=== PATIENT | female | born 1980 | race Hispanic/Latino ===

== ENCOUNTER 2016-12-12 06:58 | Inpatient (IN) | payer MEDICAID ==
[~2016-12-12] VITALS: Ht 149.9 cm; Wt 75.7 kg
[~2016-12-12 06:58] MED LIST: AMOX-366 PO; OXYC-474 PO; POLY17PO6 PO
[2016-12-12] MEDS ORDERED: Lactated Ringer's 1,000 ML IV PRN (09:03)
[2016-12-12] MEDS ORDERED: Oxytocin 30 Units/500 mL LR 30 UNITS in IV Premix 1 EACH IV PRN (09:05)
[2016-12-12] MEDS ORDERED: Sodium Chloride LOK Flush 10 mL Syringe IVFLUSH PRN (09:05)
[2016-12-12] MEDS ORDERED: Methylergonovine 0.2 mg/mL Inj IM PRN (09:05)
[2016-12-12] MEDS ORDERED: Oxytocin 10 Unit/mL Inj IM PRN (09:05)
[2016-12-12] MEDS ORDERED: Hemorrhage Kit, Post Partum XX ONE (09:05)
[2016-12-12] MEDS ORDERED: Ondansetron 2 mg/mL 2 mL Inj IVPUSH PRN (09:05)
[2016-12-12] MEDS ORDERED: Carboprost 250 mCg/mL Inj IM PRN (09:05)
[2016-12-12] MEDS ORDERED: Penicillin G K Inj 5,000,000 UNITS in Dextrose 5% Minibag Plus 100 ML IV ONE (09:05)
[2016-12-12 09:39] LABS: Mean Corpuscular Hemoglobin 29.9 pg (27.0-35.0); Mean Corpuscular Volume 86.7 fL (81-100)
[2016-12-12] MEDS: Penicillin G K Inj 3,000,000 UNITS in IV Premix 1 EACH IV SCH ×3 (14:40→22:04)
--- NOTE | 2016-12-12 17:13 | PCM.HPOB ---
Subjective Date of Service: Dec 12, 2016 Referring Provider: Admitting Physician: Steph Vanegas MD Primary Care Physician: Francine Pacheco MD Attending Physician: Steph Vanegas MD Chief Complaint Here for scheduled induction. History of Present History of Present Illness [id number]=12/25/2016 by LMP conf by [id number] U/S. Induction of labor for IUGR. 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 2- Abnormal QUAD screen w/(+) Down syndrome-> negative cell free DNA testing. Incomplete anatomy scan. 3- IUGR: 1%tile on 08/12/16--> Last U/S @ [facility] on 08/30/16 showed EFW 456gm, 4%tile , humerus 3%tile, Femur 2%tile,-->persistent 4%tile growth on 11/18/2016 scan.( deliver at 38-39wks [address] Dr. Farrell) 4- Anemia (on iron supplements). 5- Abnormal 1hr GCT--> HbA1c was 6.3 @ intake.rpt 1 hr Wnl at 26 weeks (121) 6- Desires permanent sterilization (consents signed on 10/25/2016) Past Medical History Obstetrical History: 1st Outcome Live Delivery Date: 01/31/2006 Length of Pregnacy: 40 Mode of Delivery: Vaginal Anesthesia: epidural Labor hrs: 3-4 Location: [place] Birthweight: 4lbs Gender: female Complications: chromosome problems baby 03/10/2006 2nd Outcome live Delivery Date: 03/2012 Length of Pregnacy: 38 Mode of Delivery: Vaginal Anesthesia: epidural Labor hrs: 2 Location: [facility] Birthweight: 6lbs 10 oz Gender: female Complications: none Child's Name: Talya HERNANDEZ Name: Nish 3rd Outcome Live Delivery Date: 11/27/2013 Mode of Delivery: Vaginal Birthweight: 6lbs Length of : 38wks Complications: NO Child's Name: Levi Rueda Father: Nish Urias Gynecologic History: LMP 03/16/16 No h/o of abn pap No h/o of STI Medical History: * Rosacea 09/2016: Dermatology consult -->rx Finacea topical gel * Allergic rhinitis, seasonal Surgical History: None. Hx Tobacco Use: No Hx Alcohol Use: No Hx Substance Use: No Review of Systems ROS 11 points ROS is negative. Medications Home medications Iron daily vitamins Allergy Coded Allergies: No Known Allergies (Verified Allergy, Unknown, 07/04/15) Exam Vital Signs Vital signs reviewed WNL. heart tones: category 1 . Constitutional: Well-developed HEENT: Atraumatic, PERRLA Lungs: Clear to Auscultation Heart: Regular Rate/Rhythm, Normal S1, Normal S2 Abdomen: Gravid Extremities: Pulses Palpable x4, No Edema Neurological/Psychiatric: Alert, Oriented X3 Neuro: Grossly Neurologically Intact, Reflexes 2+ Additional Information at admission cervix closed/50%/-3/soft/posterior, bass score 3. Labs/Diagnostics Lab/Diagnostic Information CBC Test 12/12/16 09:30 White Blood Count 10.5th/mm3 (3.8-10.1) Red Blood Count 4.28mil/mm3 (3.90-5.20) Hemoglobin 12.8g/dL (12.0-15.6) Hematocrit 37.1% (35.0-46.0) Mean Corpuscular Volume 86.7fL (81-100) Mean Corpuscular Hemoglobin 29.9pg (27.0-35.0) Mean Corpuscular Hemoglobin Concent 34.5% (32.0-37.0) Red Cell Distribution Width 13.4% (12.3-15.4) Platelet Count 243bil/L (150-400) Maternal Blood Type: O (positive ) Antibody Screen: Negative Group B Strep Results: Positive Rubella: Immune Additional Information RPR non-reactive Hep B sAg non-reactive HIB non-reactive Pap WNL , HPV negative 06/17/16 1 hr GTT at 12 weeks (123), at 16 weeks (135) at 26 weeks (121) OB Intrapartum Assessment/Plan Assessment [id number]=12/25/2016 by LMP conf by [id number] U/S. Induction of labor for IUGR. 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 2- Abnormal QUAD screen w/(+) Down syndrome-> negative cell free DNA testing. Incomplete anatomy scan. 3- IUGR: 1%tile on 08/12/16--> Last U/S @ [facility] on 08/30/16 showed EFW 456gm, 4%tile , humerus 3%tile, Femur 2%tile,-->persistent 4%tile growth on 11/18/2016 scan.( deliver at 38-[address]. Farrell) 4- Anemia (on iron supplements). 5- Abnormal 1hr GCT--> HbA1c was 6.3 @ intake.rpt 1 hr Wnl at 26 weeks (121) 6- Desires permanent sterilization (consents signed on 10/25/2016) Intrapartum plan Induction of labor process/R/B/A were reviewed with pt in details at the office , all questions answered, and informed consent was signed. Cervidil placed at 10 am. Steph Vanegas MD Dec 12, 2016 17:13
[2016-12-12] MEDS: Lactated Ringer's 1,000 ML IV SCH ×2 (19:13→20:52)
[2016-12-12] MEDS: fentaNYL-PF 50 mCg/mL 2 mL Inj IVPUSH PRN ×2 (19:16→20:39)
[2016-12-13] MEDS ORDERED: fentaNYL 2 mCg/mL-Bupivicaine 0.125% 100 mL Premix EPIDURAL ONE (02:21)
[2016-12-13] MEDS: Penicillin G K Inj 3,000,000 UNITS in IV Premix 1 EACH IV SCH ×6 (02:45→21:00)
[2016-12-13] MEDS ORDERED: Lactated Ringer's 500 ML IV ONE (02:56)
--- NOTE | 2016-12-13 02:56 | PCM.HPANE ---
Patient Data Surgeon Admitting Provider:Steph Vanegas MD Attending Provider:Steph Vanegas MD Primary Care Physician:Francine Pacheco MD Other Provider: Reason for Visit Induction INDUCTION Ht/WT & BMI Body Mass Index Allergies Coded Allergies: No Known Allergies (Verified Allergy, Unknown, 07/04/15) Past Anesthesia History Anesthesia History: Denies:: Abnormal Airway, Anesthesia Reactions, Difficult Intubation, Fam Anesthesia Reaction, Fam Malignant Hypertherm, Malignant Hyperthermia Diabetes History Hx Diabetes?: No Medications Active Scripts Polyethylene Glycol 3350 (Miralax)17 Gm Powd.pack17 Gm PO DAILY PRN For Constipation #7 Prov:Lucinda Hartman [facility] 07/06/15 Oxycodone (Roxicodone)5 Mg Tablet5 Mg PO Q6H PRN For Pain #20 TABLET Ref 0 Prov:Lucinda Hartman [facility] 07/06/15 Amoxicillin/Clav K 875-125 mg (Augmentin 875-125 mg)1 Each Tablet1 Tablet PO BID #14 TABLET Ref 0 Prov:Lucinda Hartman [facility] 07/06/15 History History of ENT Problems?: No HEENT History: Denies:: Abnormal Airway Cataracts Difficult Intubation Dysphagia Glaucoma Hearing Problem Sinus Problem TMJ Denture Type: None Teeth Condition: Within Normal Limits Hx of Heart Problems?: No Cardiovascular History: Denies:: AICD Abdominal Aortic Aneurism Atrial Fibrillation Cardiac Surgery Chest Pain Congestive Heart Failure Coronary Artery Disease Edema Heart Murmur Hypertension Irregular Heartbeat Pacemaker Peripheral Vascular Rheumatic Fever Thrombophlebitis Valvular Heart Disease Hx of Respiratory Problem?: No Respiratory History: Denies:: Asthma COPD Chest Surgery Cough Dyspnea Emphysema Hemoptysis Oxygen Administration Pneumonia Pulmonary Embolism Tuberculosis Use of C-PAP Machine Use of Inhalers / NEBS Hx Neurologic Problems?: No Neurological History: Denies:: Alzheimer's Disease CVA Dementia Dizziness Headaches Multiple Sclerosis Parkinson's Disease Peripheral Neuropathy Seizures TIA Hx of GI Problems?: No Gastrointestinal History: Denies:: Cirrhosis Diverticulitis Gall Bladder Disease Gastroesphageal Reflux Gastrointestinal Bleeding Heartburn Hepatitis Hiatal Hernia Liver Disease Rectal Bleeding Hx of Problems?: No Genitourinary History: Denies:: HX of Hemodialysis Kidney Stones Urinary Tract Infection HX of Peritoneal Dialysis: No Female Hx: Positive for:: Currently Denies:: Endometriosis Pelvic Inflammatory Problems with Breasts? Skin History: Denies:: History Skin Disorders? Pressure Ulcers Hx Musculoskeletal Problems?: No Hx of Psycho/Social Problems?: No Hx Surgeries?: No Hx Any Other Health Problems?: No Hx Diabetes: No Hx Alcohol Use: NoHx Substance Use: No Smoking Status: Never Smoker Stop/Bang Risk Assessment Category Category 1A: Patient has history of documented sleep apnea, and HAS NOT received any narcotic, sedative or anesthesia administration during this stay. Category 1B: Patient has history of documented sleep apnea, and HAS received any narcotic , sedative or anesthesia administration during this stay Category 2: Patient has SUSPECTED Obstructive Sleep Apnea, and HAS received any narcotic , sedative or anesthesia administration during this stay. Category 3: Patient has SUSPECTED Obstructive Sleep Apnea and HAS NOT received narcotic, sedative or anesthesia administration during this stay. Category 4: Outpatient in Procedural Areas with known sleep apnea or who screen positive for High Risk via the STOP/BANG questionnaire. Exam Exam General Appearance: Alert, Oriented X3, Cooperative, No Acute Distress HEENT/AIRWAY: MP 2, Neck Movement (FROM), Mouth Opening (3 FBMO) Lungs: Clear to Auscultation, Normal Air Movement Heart: Exam Unremarkable, Regular Rate/Rhythm, No Murmurs/Rubs/Gallops Meds/Labs/Diagnostics Admission Meds Current Medications Dinoprostone 10 mg 10 mg ONCE ONCE VAGINAL Last administered on 12/12/16 10: 03; Start 12/12/16 at 09:05; Stop 12/12/16 at 09:12; Status DC Penicillin G Potassium/ Dextrose/Water (Pfizerpen Inj/ D5W Minibag Plus) 100 ml @ 240 mls/hr ONCE ONCE IV Last administered on 12/12/16 10:03; Start at 09:05; Stop 12/12/16 at 09:29; Status DC Labs Test 12/12/16 09:30 White Blood Count 10.5th/mm3 (3.8-10.1) Red Blood Count 4.28mil/mm3 (3.90-5.20) Hemoglobin 12.8g/dL (12.0-15.6) Hematocrit 37.1% (35.0-46.0) Mean Corpuscular Volume 86.7fL (81-100) Mean Corpuscular Hemoglobin 29.9pg (27.0-35.0) Mean Corpuscular Hemoglobin Concent 34.5% (32.0-37.0) Red Cell Distribution Width 13.4% (12.3-15.4) Platelet Count 243bil/L (150-400) Plan Impression Patient chart reviewed, patient interviewed and anesthestic plan with risks, benefits, and alternatives discussed, and informed consent obtained. NPO per Anesth. Guidelines: Yes ASA Physical Status: ASA1 Normal Healthy Anesthetic Plan: Epidural Bene/Risks/Altern/Consents: Yes HP Complete Prior to Induction: Yes Other khmer speaker packer and carry out present at all times during H&P. Anesthesia risks discussed. Myles Masterson MD Dec 12, 2016 13:59
[2016-12-13] MEDS: Lactated Ringer's 1,000 ML IV SCH ×9 (02:59→23:17)
[2016-12-13] MEDS ORDERED: Atropine 1 mg/10 mL (Code) Syringe IVPUSH PRN (03:00)
[2016-12-13] MEDS ORDERED: EPHEDrine Sulfate 50 mg/mL Inj IVPUSH PRN (03:00)
[2016-12-13] MEDS ORDERED: fentaNYL 2 mCg/mL-Bupiv 0.125% 100 ML EPIDURAL SCH (03:00)
[2016-12-13] MEDS ORDERED: Oxytocin 30 Units/500 mL LR 30 UNITS in IV Premix 1 EACH IV PRN ×2 (07:20→16:00)
[2016-12-13] MEDS ORDERED: Bupivacaine-MPF 0.25% 30 mL Inj ONE (08:09)
[2016-12-13] MEDS ORDERED: Carboprost 250 mCg/mL Inj IM PRN (16:00)
[2016-12-13] MEDS ORDERED: Hemorrhage Kit, Post Partum XX ONE (16:00)
[2016-12-13] MEDS ORDERED: Oxytocin 10 Unit/mL Inj IM PRN (16:00)
[2016-12-13] MEDS ORDERED: LANOlin HPA 7 Gm Ointment TOPICAL PRN (16:00)
[2016-12-13] MEDS ORDERED: Methylergonovine 0.2 mg/mL Inj IM PRN (16:00)
[2016-12-13] MEDS ORDERED: Benzocaine (Dermoplast) 20% 60 Gm Spray TOPICAL PRN (16:00)
[2016-12-13] MEDS ORDERED: Witch Hazel-Glycerin Pads TOPICAL PRN (16:00)
--- NOTE | 2016-12-13 16:46 | OP ---
[address] [address] OPERATIVE REPORT PATIENT: ANAI COLMENARES : 1980 MR#: [id number] ADMIT: 12/12/2016 JOB ID: [id number] DATE OF SURGERY: 12/13/2016 PREOPERATIVE DIAGNOSIS(ES): 1. Intrauterine at 38 weeks and 2 days. 2. Intrauterine growth restriction. POSTOPERATIVE DIAGNOSIS(ES): 1. Intrauterine at 38 weeks and 2 days. 2. Intrauterine growth restriction. PROCEDURE: Normal vaginal delivery with no laceration. SURGEON: Steph Vanegas MD. NON PROFIT DIRECTOR: None. ANESTHESIA: Epidural. ESTIMATED BLOOD LOSS: 300 mL. COMPLICATIONS: None. OUTCOME: Male infant, weight 2548 g. Apgars 9 and 9 at one and five minutes, respectively. Clear amniotic fluid. Nuchal cord x1 and placenta intact with a three-vessel cord. PROCEDURE: This is a 36-year-old, 4, para 3-0-0-2. Was admitted at 38 weeks and 1 day gestation for induction for intrauterine growth restriction. Estimated weight was at 4th percentile. Induction was started with Cervidil for cervical ripening. Rosas's score was 3 at admission. Cervidil was repeated after 12 hours. Then, next morning, the cervix found to be 5 cm dilated. The cervix remained at 5 cm dilated from 6 in the morning until 8 a.m. Oxytocin was started. Patient continued to contract regularly with Pitocin. Cervix found to be 5-6 cm dilated around 1300 hour and artificial rupture of membrane was performed. Clear fluid was noted. Cervix noted to be at 7 cm at 13:30. Head was well applied. Patient continued to contract regularly with Pitocin. Found to be completely dilated at 14:42. She pushed effectively when she started to have pelvic pressure. Delivered at 15:07 via two contractions. Delivered a male in left occiput anterior position with nuchal cord that was loose, delivered through the nuchal cord. Shoulders delivered without difficulty. was placed on the maternal abdomen. Delayed cord clamping was performed after 1 minute. Apgars were 9 and 9 at one and five minutes respectively. Cord segment was collected for gases. Cord blood was collected for typing and placenta was delivered spontaneously intact at 15:11 with a three-vessel cord. Fundal massage was performed. Pitocin was started before delivery of the placenta and was continued for the coming 4-5 hours. The perineum was examined. No laceration was noted. All instrument, needle, and sponge counts were correct x2. The patient tolerated the procedure well and was recovering in the delivery room with infant in stable condition. Steph Nixon MD, was present and scrubbed for the entire procedure. JEZ
[2016-12-13] MEDS: oxyCODONE-Acetamin 5-325 mg Tablet PO PRN (17:03)
[2016-12-13] MEDS: Ascorbic Acid 500 mg Tablet PO SCH (17:30)
--- NOTE | 2016-12-13 22:54 | PCM.ANEP1 ---
Post Anesthesia PACU Phase 1 Assessment Date of Service: Dec 13, 2016 Anesthetic Administered: Epidural Level of Alertness: Awake, talking PALMER's with Equal Strength: Yes Pain: No Nausea or Vomiting: No CV Function & Hydration Stable: Yes Airway Device: Oxygen Delivery: Room Air Lungs: Clear to Auscultation, Normal Air Movement Dermatome Level: Full Sensation PACU Phase 2 Assessment Complications: No Follow up Care: N/A Patient Instructions Provided: N/A Toni Shukla MD Dec 13, 2016 22:54
[2016-12-14] MEDS: Penicillin G K Inj 3,000,000 UNITS in IV Premix 1 EACH IV SCH ×4 (01:00→13:00)
[2016-12-14] MEDS: Lactated Ringer's 1,000 ML IV SCH ×7 (01:03→09:03)
[2016-12-14] MEDS: oxyCODONE-Acetamin 5-325 mg Tablet PO PRN ×3 (03:55→21:12)
[2016-12-14 06:48] LABS: Mean Corpuscular Hemoglobin 29.9 pg (27.0-35.0); Mean Corpuscular Volume 87.9 fL (81-100)
[2016-12-14] MEDS ORDERED: Sodium Citrate-Citric Acid 15 mL Solution PO ONE (10:48)
[2016-12-14] MEDS ORDERED: CeFAZolin Inj 2 GM in IV Premix 1 EACH IV ONE (10:50)
--- NOTE | 2016-12-14 12:25 | PCM.DIOB ---
Obstetrical Disch Instruction Date of Service: Dec 14, 2016 Dates of Hospitalization Date of Hospital Admission Dec 12, 2016 at 07:59 Providers Admitting Physician: Steph Vanegas MD Primary Care Physician: Francine Pacheco MD Attending Physician: Steph Vanegas MD Discharge Diagnosis Discharge Diagnosis Status post Normal vaginal delivery 12/13/16 Status post tubal ligation 12/14/16 anemia, asymptomatic Problems: Diet Discharge Diet: No restrictions Activity Discharge Activity-General: Pelvic Rest for 6 weeks (no sex, douching and tampons ), No lifting >10 pounds for 4-6 weeks Dressing and Incisional Care Dressing Care: Allow Steri Stripes to fall off, Remove outer dressing after 24 hrs Hygiene: May shower (after 24 hours ), Wash incision with soap & water (then dry well and keep open ) Follow Up Plan Follow-up Provider (F9): Steph Vanegas MD Follow-up appointment: Weeks (1 or 2) Call your provider for: Fever or Chills, Shortness of breath, Heavy vaginal bleeding, Heavy bleeding, Epigastric pain, Excessive constipation, Vaginal discomfort, Red painful breasts, Other (headache, change in vision, nausea/ vomiting, breast pain, legs swelling, change in legs color or legs pain ) Steph Vanegas MD Dec 14, 2016 12:25
[2016-12-14] MEDS ORDERED: OXYC1TAB24 PO (12:28)
[2016-12-14] MEDS ORDERED: FERR-74 PO (12:28)
[2016-12-14] MEDS ORDERED: Ascorbic Acid PO (12:28)
[2016-12-14] MEDS ORDERED: DOCU-41 PO (12:28)
[2016-12-14] MEDS ORDERED: IBUP-1827 PO (12:28)
--- NOTE | 2016-12-14 12:31 | PCM.DC.OB ---
Obstetrical Discharge Summary Date of Service Dec 14, 2016 Date of hospital admission Dec 12, 2016 at 07:59 Date of Discharge: Dec 15, 2016 Providers Admitting Physician: Dora Ridley MD Primary Care Physician: Francine Pacheco MD Attending Physician: Dora Ridley MD Hospital Course: Discharge Diagnosis Discharge Diagnosis Status post Normal vaginal delivery 12/13/16, see operative report for details. Status post tubal ligation 12/14/16 , see operative report for details. anemia, asymptomatic LAB: Laboratory Tests 72 Hours Test 12/14/16 06:35 12/15/16 06:44 White Blood Count 11.8th/mm3 (3.8-10.1) 10.6th/mm3 (3.8-10.1) Red Blood Count 3.64mil/mm3 (3.90-5.20) 3.49mil/mm3 (3.90-5.20) Hemoglobin 10.9g/dL (12.0-15.6) 10.4g/dL (12.0-15.6) Hematocrit 32.0% (35.0-46.0) 31.1% (35.0-46.0) Mean Corpuscular Volume 87.9fL (81-100) 89.1fL (81-100) Mean Corpuscular Hemoglobin 29.9pg (27.0-35.0) 29.8pg (27.0-35.0) Mean Corpuscular Hemoglobin Concent 34.1% (32.0-37.0) 33.4% (32.0-37.0) Red Cell Distribution Width 13.2% (12.3-15.4) 13.4% (12.3-15.4) Platelet Count 193bil/L (150-400) 205bil/L (150-400) Disposition: home. Discharge Condition: stable. Diet Discharge Diet: No restrictions Activity Discharge Activity-General: Pelvic Rest for 6 weeks (no sex, douching and tampons ), No lifting >10 pounds for 4-6 weeks Dressing and Incisional Care Dressing Care: Allow Steri Stripes to fall off, Remove outer dressing after 24 hrs Hygiene: May shower (after 24 hours ), Wash incision with soap & water (then dry well and keep open ) Follow Up Plan Follow-up Provider (F9): Dora Ridley MD Follow-up appointment: Weeks (1 or 2) Call your provider for: Fever or Chills, Shortness of breath, Heavy vaginal bleeding, Heavy bleeding, Epigastric pain, Excessive constipation, Vaginal discomfort, Red painful breasts, Other (headache, change in vision, nausea/ vomiting, breast pain, legs swelling, change in legs color or legs pain ) ([Ascorbic Acid]) 500 MG TABLET 500 MG PO BIDWM Prescribed by: DORA RIDLEY MD Docusate Sodium (Colace) 100 Mg Capsule 100 MG PO DAILY Prescribed by: DORA RIDLEY MD Ferrous Sulfate (Feosol) 325 Mg Tablet 325 MG PO DAILY Prescribed by: DORA RIDLEY MD Ibuprofen (Ibuprofen) 600 Mg Tablet 600 MG PO QID PRN PRN For Pain Prescribed by: DORA RIDLEY MD Polyethylene Glycol 3350 (Miralax) 17 Gm Powd.pack 17 GM PO DAILY PRN PRN For Constipation Prescribed by: VIANNEY ADKINS oxyCODONE-Acetaminophen 5-325 mg (oxyCODONE-Acetaminophen 5-325 mg) 1 Each Tablet 1-2 TAB PO Q4H PRN PRN For Pain Prescribed by: DORA RIDLEY MD Discontinued Medications Amoxicillin/Clav K 875-125 mg (Augmentin 875-125 mg) 1 Each Tablet 1 TABLET PO BID Prescribed by: VIANNEY ADKINS Oxycodone (Roxicodone) 5 Mg Tablet 5 MG PO Q6H PRN PRN For Pain Prescribed by: VIANNEY ADKINS Omaima A MD Dec 14, 2016 12:31
[2016-12-14] MEDS ORDERED: Sodium Chloride LOK Flush 10 mL Syringe IVFLUSH PRN ×2 (13:55)
[2016-12-14] MEDS ORDERED: LANOlin HPA 7 Gm Ointment TOPICAL PRN ×2 (13:55)
[2016-12-14] MEDS ORDERED: diphenhydrAMINE 50 mg Capsule PO PRN (13:55)
[2016-12-14] MEDS ORDERED: oxyCODONE-Acetamin 5-325 mg Tablet PO PRN (13:55)
[2016-12-14] MEDS ORDERED: Oxytocin 30 Units/500 mL LR 30 UNITS in IV Premix 1 EACH IV PRN (13:55)
[2016-12-14] MEDS ORDERED: hydrOXYzine Pamoate 25 mg Capsule PO PRN (13:55)
[2016-12-14] MEDS ORDERED: Lactated Ringer's 1,000 ML IV SCH ×2 (13:55)
[2016-12-14] MEDS ORDERED: Carboprost 250 mCg/mL Inj IM PRN ×2 (13:55)
[2016-12-14] MEDS ORDERED: Hemorrhage Kit, Post Partum XX ONE ×2 (13:55)
[2016-12-14] MEDS ORDERED: Methylergonovine 0.2 mg/mL Inj IM PRN ×2 (13:55)
[2016-12-14] MEDS ORDERED: Oxytocin 10 Unit/mL Inj IM PRN ×2 (13:55)
[2016-12-14] MEDS: Ascorbic Acid 500 mg Tablet PO SCH (15:46)
[2016-12-15 07:09] LABS: Mean Corpuscular Hemoglobin 29.8 pg (27.0-35.0); Mean Corpuscular Volume 89.1 fL (81-100)
[2016-12-15] MEDS: Ascorbic Acid 500 mg Tablet PO SCH (07:53)
[2016-12-15 12:44] VITALS: BP 97/54; PULSE 78; RESP 18
--- NOTE | 2016-12-15 15:10 | OP ---
[address] [address] OPERATIVE REPORT PATIENT: ANAI COLMENARES : 1980 MR#: [id number] ADMIT: 12/12/2016 JOB ID: [id number] DATE OF SURGERY: 12/14/2016 PREOPERATIVE DIAGNOSIS(ES): 1. Multiparity. 2. Desires permanent sterilization. POSTOPERATIVE DIAGNOSIS(ES): 1. Multiparity. 2. Desires permanent sterilization. PROCEDURE: tubal ligation via mini-laparotomy with bilateral partial salpingectomy. SURGEON: Steph Vanegas MD. FILM AND VIDEO EDITOR: None. ANESTHESIA: Spinal. ESTIMATED BLOOD LOSS: 10 cc. COMPLICATIONS: None. FINDINGS: Normal tubes bilaterally. Both were traced out to the fimbria. No visible adnexal masses or uterine masses. Limited exposure secondary to the mini-laparotomy. SPECIMEN: Partial segment of the left and right fallopian tubes. BLOOD TRANSFUSION: None. INDICATIONS: This is a 36 years old, 4, para 4-0-0-3, status post normal vaginal delivery on December 13, 2016. The patient desires permanent sterilization. The patient signed the sterilization consent over 30 days ago. The patient was counseled at the office extensively, and counseled again prior to the procedure. The patient understands that tubal ligation is a permanent procedure with a failure rate of 1:200, with an increased risk of ectopic in failed tubal ligation cases. Alternatives to tubal ligation were discussed in detail including LARC and a male sterilization. Reviewed risks, benefits and alternatives of each alternative control method. The patient understands she may still need some hormonal treatment in the future if she develops abnormal uterine bleeding. [employer]ge [employer]per was used for discussion and counseling both at the office and prior to the surgery. All questions were answered. The patient desires to proceed with a tubal ligation as planned today. DESCRIPTION OF PROCEDURE: After informed consent was obtained, the patient was taken to the operation room. She was placed under adequate spinal anesthesia. Then, she was placed in a supine position. Abdomen was prepped and draped in the usual sterile fashion. The patient received 2 g of Ancef prophylactically. A skin incision was made in horizontal fashion in the infra umbilical area. The incision was extended down to the fascia with blunt dissection using Metzenbaum scissors. Then, the fascia was grasped and was elevated. The fascia was entered sharply with Metzenbaum scissors. Then, the peritoneum was identified and grasped with hemostats and was brought to the incision and was incised with Metzenbaum scissors. Confirming intraperitoneal location, no evidence of injury was noted. Then, mini lap was inserted in the left lateral gutter, and the patient was tilted to the right. The fallopian tube was identified and traced out to the fimbria. The middle segment of the tube was elevated and an area clear of vascularity in the mesosalpinx was identified. A window was created with Bovie cautery. Then, the middle segment was double ligated bilaterally with 0 plain gut suture material. Then, the middle segment was excised. Hemostasis was ensured with gentle cautery at the remaining tubal stump. Then, the tube was visualized for any bleeding, and the mesosalpinx was examined for any bleeding. Noted to be hemostatic. Some irrigation was performed with no evidence of any bleeding. The tube was returned back into the abdomen. Then, attention was turned to the right side of the procedure after removing the mini sponge from the left. The patient was tilted back to the left side and mini laps were used to pack the bowel on the right side. The right tube was identified, traced out to the fimbria. The middle segment of the tube was elevated and an area clear of the vascularity was identified. A window was created with the Bovie cautery. A 3-4 cm middle segment was double tied and ligated and excised. Remaining stumps of the tube were examined. Hemostasis was ensured with Bovie cautery, and some irrigation was performed ensuring no active bleeding. The tube was returned back to the abdomen. Removed all sponges and instrument. The fascia was approximated with 0 Vicryl in a running fashion in a UR needle. The subcutaneous layer was approximated with 2-0 chromic in a simple interrupted fashion. The skin was closed with 4-0 Monocryl in a subcuticular fashion, followed by Steri-Strips. Then, adhesive bandage. All instrument, needle and sponge counts were correct x2. The patient tolerated the procedure well and was transferred to the recovery room in stable condition. Steph Nixon MD, was present and scrubbed for the entire procedure. JEZ
--- NOTE | 2016-12-16 10:51 | PATH ---
SURGICAL PATHOLOGY Attending Physician:Steph Vanegas CASE STATUS: Signed Out PATIENT NAME: ANAI COLMENARES PID: [id number] : 1980 DATE COLLECTED:12/12/2016 00:00 SPECIMEN: Placenta CLINICAL HISTORY: INTRAUTERINE GROWTH RESTRICTION 1). PLACENTA FINAL DIAGNOSIS: Placenta, Vaginal Delivery: - Warren placenta weighing 393 grams. - Three-vessel umbilical cord with no evidence of inflammation. - membranes with no evidence of inflammation. - Focal active deciduitis is identified with no evidence of viral cytopathic changes. - Villous morphology appropriate for gestational age with focal infarcts. ICD10: P05.9 GROSS DESCRIPTION: The specimen is received in formalin, labeled with the patient's name, and consists of an intact placenta which includes the placental disc (393 g, 14.3 x 13.5 x 2.8 cm), membranes and umbilical cord (length-15.5 cm, diameter-1.2 x 0.8 cm). The membranes are ruptured 3.5 cm from the free edge of the placenta and are thick, rubbery, and semitranslucent. The umbilical cord is attached 1.7 cm from the edge of the placenta and contains 3 vessels. The surface is smooth and shiny with no evidence of meconium identified. The maternal surface is dark maroon with normal cotyledon formation. The placental body is spongy with multiple cystic cavities (0.1 cm-0.8 cm) containing colorless turbid gelatinous material. The cavities involve approximately less than 2% of the placenta. No nodules, masses, lesions, hematomas or infarcts are identified. Section code: (A) edge of placenta with membranes; (B) umbilical cord; (C-F) placenta, 4 full-thickness sections. 12/14/16 ICD-9 CODES: CPT CODES: 1: 24011 Electronically Signed Out Alonso Storey MD [facility] [address], [place] [address] Technical component performed at [facility], [address], [place], [address]
--- NOTE | 2016-12-16 16:44 | PATH ---
SURGICAL PATHOLOGY Attending Physician:Steph Vanegas CASE STATUS: Signed Out PATIENT NAME: ANAI COLMENARES PID: [id number] : 1980 DATE COLLECTED:12/14/2016 00:00 SPECIMEN: 1: Fallopian Tube, Biopsy 2: Fallopian Tube, Biopsy CLINICAL HISTORY: BILATERAL TUBAL LIGATION (PARTIAL SALPINGECTOMY) 1). RIGHT FALLOPIAN TUBE 2). LEFT FALLOPIAN TUBE FINAL DIAGNOSIS: 1.RIGHT FALLOPIAN TUBE, TUBAL LIGATION (PARTIAL SALPINGECTOMY): - COMPLETE CROSS SECTION OF FALLOPIAN TUBE. - Additional deeper levels examined. 2.LEFT FALLOPIAN TUBE, TUBAL LIGATION (PARTIAL SALPINGECTOMY): - COMPLETE CROSS SECTION OF FALLOPIAN TUBE. [id number] GROSS DESCRIPTION: Received two formalin-filled containers, each labeled with the patient's name. 1. Received in formalin, labeled with the patient's name and "tube right" is a 1.2 cm long by 0.3 cm in diameter segment of nonfibroid fallopian tube. The tissue is inked blue and entirely submitted in cassette 1A. 2. Received in formalin, labeled with the patient's name and "L tube" is a 1.0 cm long by 0.3 cm in diameter segment of nonfibroid fallopian tube. The tissue is inked blue and entirely submitted in cassette 2A. ([id number]) MICRO DESCRIPTION: See diagnosis. ICD-9 CODES: CPT CODES: 1: 70728 2: 36913 Electronically Signed Out Alonso Storey MD [facility] [address], [place] [address] Technical component performed at [facility], [address], [address]
== END 2016-12-15 14:12 | disposition home or self-care (01) | DRG 767 ==
LOC: FBCO 06:58 → FBC 07:59
PROVIDERS: ADMIT Obstetrics & Gynecology; ATTEND Obstetrics & Gynecology
PROC: 3E0P7GC Introduction of Other Therapeutic Substance into Female Reproductive, Via Natural or Artificial Opening (ICD-10-PCS; 2016-12-12)
PROC: 10E0XZZ Delivery of Products of Conception, External Approach (ICD-10-PCS; principal; 2016-12-13)
PROC: 0UB70ZZ Excision of Bilateral Fallopian Tubes, Open Approach (ICD-10-PCS; 2016-12-14)
DX: O69.81X0 Labor and delivery complicated by cord around neck, without compression, not applicable or unspecified (principal); O36.5930 Maternal care for other known or suspected poor fetal growth, third trimester, not applicable or unspecified; O99.013 Anemia complicating pregnancy, third trimester; Z3A.38 38 weeks gestation of pregnancy; Z30.2 Encounter for sterilization; Z37.0 Single live birth

== ENCOUNTER → 2016-12-14 | Day surgery (SDC) | payer MEDICAID ==
[~2016-12-14] MED LIST changes: +Ascorbic Acid PO; +Atropine 0.4 mg/mL Inj IV PRN; +DOCU-41 PO; +EPHEDrine Sulfate 50 mg/mL Inj IVPUSH PRN; +FERR-74 PO; +IBUP-1827 PO; +OXYC1TAB24 PO; +Ondansetron 2 mg/mL 2 mL Inj IVPUSH PRN; +fentaNYL-PF 50 mCg/mL 2 mL Inj IVPUSH PRN
--- NOTE | 2016-12-14 12:16 | PCM.HPANE ---
Patient Data Surgeon Admitting Provider: Attending Provider:Steph Vanegas MD Primary Care Physician:Francine Pacheco MD Other Provider:Keyanna Hawthorneingham Anesthesia Reason for Visit Post tubal ligation Ht/WT & BMI Body Mass Index Allergies Coded Allergies: No Known Allergies (Verified Allergy, Unknown, 07/04/15) Past Anesthesia History Anesthesia History: Denies:: Abnormal Airway, Anesthesia Reactions, Difficult Intubation, Fam Anesthesia Reaction, Fam Malignant Hypertherm, Malignant Hyperthermia Diabetes History Hx Diabetes?: No Medications Active Scripts Ferrous Sulfate (Feosol)325 Mg [id number] Mg PO DAILY #90 TABLET Ref 0 Prov:Steph Vanegas MD 12/14/16 Ibuprofen 600 Mg [id number] Mg PO QID PRN For Pain #100 TABLET Ref 0 Prov:Steph Vanegas MD 12/14/16 [Ascorbic Acid] (Vitamin C)500 MG TABLET No Conflict [id number] Mg PO BIDWM #90 TABLET Ref 0 Prov:Steph Vanegas MD 12/14/16 Docusate Sodium (Colace)100 Mg [id number] Mg PO DAILY #30 CAPSULE Ref 0 Prov:Steph Vanegas MD 12/14/16 oxyCODONE-Acetaminophen 5-325 mg 1 Each Tablet1-2 Tab PO Q4H PRN For Pain #40 TABLET Ref 0 Prov:Steph Vanegas MD 12/14/16 Polyethylene Glycol 3350 (Miralax)17 Gm Powd.pack17 Gm PO DAILY PRN For Constipation #7 Prov:Lucinda Hartman PAC 07/06/15 Discontinued Scripts Oxycodone (Roxicodone)5 Mg Tablet5 Mg PO Q6H PRN For Pain #20 TABLET Ref 0 Prov:Lucinda Hartman PAC 07/06/15 Amoxicillin/Clav K 875-125 mg (Augmentin 875-125 mg)1 Each Tablet1 Tablet PO BID #14 TABLET Ref 0 Prov:Lucinda Hartman PAC 07/06/15 History History of ENT Problems?: No HEENT History: Denies:: Abnormal Airway Cataracts Difficult Intubation Dysphagia Hearing Problem Sinus Problem TMJ Denture Type: None Teeth Condition: Within Normal Limits Hx of Heart Problems?: No Cardiovascular History: Denies:: AICD Abdominal Aortic Aneurism Atrial Fibrillation Cardiac Surgery Chest Pain Congestive Heart Failure Edema Heart Murmur Hypertension Irregular Heartbeat Pacemaker Rheumatic Fever Thrombophlebitis Valvular Heart Disease Hx of Respiratory Problem?: No Respiratory History: Denies:: Asthma COPD Chest Surgery Cough Dyspnea Emphysema Hemoptysis Oxygen Administration Pneumonia Pulmonary Embolism Tuberculosis Use of C-PAP Machine Hx Neurologic Problems?: No Neurological History: Denies:: Alzheimer's Disease CVA Dementia Dizziness Headaches Multiple Sclerosis Parkinson's Disease Seizures Hx of GI Problems?: No Hx of Problems?: No Genitourinary History: Denies:: HX of Hemodialysis Kidney Stones Urinary Tract Infection HX of Peritoneal Dialysis: No Female Hx: Positive for:: Currently Denies:: Endometriosis Pelvic Inflammatory Problems with Breasts? Skin History: Denies:: History Skin Disorders? Pressure Ulcers Hx Musculoskeletal Problems?: No Hx of Psycho/Social Problems?: No Hx Surgeries?: No Hx Any Other Health Problems?: No Hx Diabetes: No Hx Alcohol Use: NoHx Substance Use: No Smoking Status: Never Smoker Stop/Bang Risk Assessment Category Category 1A: Patient has history of documented sleep apnea, and HAS NOT received any narcotic, sedative or anesthesia administration during this stay. Category 1B: Patient has history of documented sleep apnea, and HAS received any narcotic , sedative or anesthesia administration during this stay Category 2: Patient has SUSPECTED Obstructive Sleep Apnea, and HAS received any narcotic , sedative or anesthesia administration during this stay. Category 3: Patient has SUSPECTED Obstructive Sleep Apnea and HAS NOT received narcotic, sedative or anesthesia administration during this stay. Category 4: Outpatient in Procedural Areas with known sleep apnea or who screen positive for High Risk via the STOP/BANG questionnaire. Exam Exam General Appearance: Alert, Oriented X3, Cooperative HEENT/AIRWAY: MP 3 Lungs: Clear to Auscultation Heart: Exam Unremarkable Plan Impression Patient chart reviewed, patient interviewed and anesthestic plan with risks, benefits, and alternatives discussed, and informed consent obtained. NPO per Anesth. Guidelines: Yes ASA Physical Status: ASA2 Mod Systemic Disease Anesthetic Plan: SAB (GA as backup) Bene/Risks/Altern/Consents: Yes HP Complete Prior to Induction: Yes Stacey Perez MD Dec 14, 2016 12:16 Bunny Liao MD Dec 14, 2016 13:17
== END | disposition home or self-care (01) ==
LOC: SAS 13:48
PROVIDERS: ATTEND Obstetrics & Gynecology
DX: Z30.2 Encounter for sterilization (principal)